=== PATIENT | male | born 1940 | race Caucasian/White ===

== ENCOUNTER 2020-06-27 11:00 | Day surgery (SDC) | payer MEDICARE, BC ==
[2020-06-27] MEDS ORDERED: Iopamidol 200-M 10 ML vial ITHECAL ONE (12:30)
[2020-06-27] MEDS ORDERED: Lidocaine 2% 5 ML SDV INJECT ONE (12:30)
[2020-06-27] MEDS ORDERED: Betamethasone Acetate/Betamethasone Sod Phosphate 30 MG/5 ML MDV EPIDUR ONE (12:30)
[2020-06-27] MEDS ORDERED: Ropivacaine 0.5% 5 MG/ML 30 ML SDV INJECT ONE (12:30)
--- NOTE | 2020-06-27 17:18 | OR ---
SURGEON: Yuliana Brady D.O. DATE OF PROCEDURE: 06/27/2020 PRIMARY SURGEON: Yuliana Brady D.O. ASSISTANTS: OR staff present: 1. Poonam Carrillo RN. 2. Ortiz Foster RT. PREOPERATIVE DIAGNOSES: 1. Chronic left hip pain. 2. Left hip degenerative joint disease. POSTOPERATIVE DIAGNOSES: 1. Chronic left hip pain. 2. Left hip degenerative joint disease. PROCEDURE PERFORMED: 1. Left intraarticular hip injection. 2. Fluoroscopic guidance for needle placement. 3. Local with oral Valium for sedation. SCREENING QUESTIONS: The patient answered "No" to all the following questions: 1. Are you allergic to iodine, Betadine, or latex? 2. Do you have a bleeding disorder? 3. Do you have any joint replacements, heart valve replacements or a pacemaker? 4. Are you allergic to anti-inflammatories? 5. Are you on any blood thinners? 6. Do you have any current local or systemic infections? DESCRIPTION OF PROCEDURE: The patient had the procedure thoroughly explained including all possible risks, benefits and alternatives. Consent was signed in my clinic indicating understanding and willingness to proceed. [facility] and was escorted to the dressing room to disrobe and change into a hospital gown. Preoperative vital signs were taken and stable. The patient was brought to the procedure room and placed in the supine position on the procedure room table. The left hip landmarks were identified for the intra- articular injection and the femoral pulse was palpated and marked. The skin was marked senior care between the femoral pulse and greater trochanter for a skin wheal. The skin was sterilely prepped with ChloraPrep and draped. All personnel in the operating room were dressed in appropriate attire including surgical scrubs, head and shoe covers. This was to ensure sterility while in the treatment room. During the time fluoroscopy was in use, all personnel in the operating room wore lead gonzalez with thyroid collars. Sterile technique was used during the procedure. The fluoroscope was placed for the intra-articular hip injection. There were no signs of infection at the site for needle insertion. The skin was anesthetized with 2% Lidocaine with a 27-gauge 1.5 inch needle. Then using a 22-gauge 3.5 inch spinal needle, I advanced to the capsule of the left hip joint, a pop was felt. Under direct fluoroscopic guidance verifying needle positioning, 0.2 cubic centimeters increments of IsoVue-200 dye was injected and shown to outline the intra-articular space. No intravascular flow pattern was observed under live fluoroscopy. After negative aspiration, a mixture of 0.5% Ropivacaine, 2% Lidocaine, and 12 milligrams of Celestone was slowly injected in small increments after negative aspiration of heme. No paresthesias were noted. The needle was cleared prior to removal from the skin and no adverse reactions were noted. The patient was then brought to the recovery room awake and in good condition by my staff. After a brief stay in the recovery room, the patient was discharged to home. Both oral and written discharge and followup instructions were given to the patient. The patient will follow up in the clinic in two to three weeks postprocedure to evaluate the efficacy. The patient verbalized understanding including understanding those signs and symptoms that would require emergency care and knows how to contact the office if there are any problems or questions in the meantime. PREOPERATIVE PAIN: 5+/10 POSTOPERATIVE PAIN: 1-2/10 FOLLOWUP: In the Pain Clinic in 3 weeks. HOGMADHAV / PETER /[id number] CORNELIA
== END 2020-06-27 13:30 ==
LOC: MW.SDS 11:00
PROVIDERS: ATTEND Anesthesiology
DX: G89.29 Other chronic pain (principal); M16.12 Unilateral primary osteoarthritis, left hip; F17.200 Nicotine dependence, unspecified, uncomplicated; M54.5 Low back pain; M51.37 Other intervertebral disc degeneration, lumbosacral region; M47.816 Spondylosis without myelopathy or radiculopathy, lumbar region; M79.18 Myalgia, other site; Z90.49 Acquired absence of other specified parts of digestive tract

== ENCOUNTER 2021-10-08 08:39 | Observation (INO) | payer MEDICARE, BC ==
[2021-10-08] MEDS ORDERED: Sodium Chloride 0.9% 1,000 ML IV ONE (09:01)
[2021-10-08] MEDS ORDERED: Famotidine 20 MG/2 ML SDV IVPUSH ONE (09:01)
[2021-10-08] MEDS ORDERED: Alum Hydro/Mag Hydro/Simeth XS 15 ML, Lidocaine 2% 5 ML PO ONE ×2 (09:02)
[2021-10-08 09:29] LABS: BLOOD UREA NITROGEN,BUN 20 mg/dL (7.0-18.0); CHLORIDE,CL 103 mmol/L (98-107); ESTIMATED GFR > 60.0 ml/min; GLUCOSE RANDOM 96 mg/dL (74-106); LIPASE 41 U/L (73-393); POTASSIUM,K 3.9 mmol/L (3.5-5.1); SODIUM,NA 140 mmol/L (136-148)
[2021-10-08] MEDS ORDERED: Iopamidol 755 MG/ML 500 ML Multipack Bottle IVPUSH STA (10:42)
[2021-10-08] MEDS ORDERED: Morphine 4 MG/ML VIAL IVPUSH ONE ×2 (10:52→13:02)
[2021-10-08] MEDS ORDERED: Heparin Sodium 5,000 Units/ML Vial IVPUSH ONE (11:52)
[2021-10-08] MEDS ORDERED: Heparin Sodium/0.45% NaCl 500 ML IV SCH ×4 (12:00→13:00)
[2021-10-08] MEDS ORDERED: Heparin Sodium/0.45% NaCl 500 ML ONE (12:21)
[2021-10-08] MEDS ORDERED: Acetaminophen 325 MG Tab PO PRN (14:16)
[2021-10-08] MEDS ORDERED: Morphine 2 MG/ML SYRINGE IVPUSH PRN (14:16)
[2021-10-08] MEDS ORDERED: Sodium Chloride 0.9% 2.5 ML Syringe FLUSH PRN (14:17)
[2021-10-08] MEDS ORDERED: Ondansetron 4 MG/2 ML SDV IVPUSH PRN (14:17)
[2021-10-08] MEDS ORDERED: Sodium Chloride 0.9% 10 ML Syringe FLUSH PRN (14:17)
[2021-10-08] MEDS ORDERED: Albuterol/Ipratropium 3.0-0.5 MG/3 ML Neb Soln NEB PRN (14:17)
[2021-10-08] MEDS ORDERED: Docusate Sodium 100 MG Cap PO PRN (14:17)
[2021-10-08] MEDS ORDERED: Heparin Sodium 5,000 Units/ML Vial IVPUSH PRN (14:22)
[2021-10-08] MEDS ORDERED: oxyCODONE 5 MG Tab PO PRN (16:15)
[2021-10-09 07:42] LABS: BLOOD UREA NITROGEN,BUN 15 mg/dL (7.0-18.0); CARBON DIOXIDE,CO2 25.8 mmol/L (21.0-32.0); CHLORIDE,CL 102 mmol/L (98-107); ESTIMATED GFR > 60.0 ml/min; GLUCOSE RANDOM 79 mg/dL (74-106); SODIUM,NA 136 mmol/L (136-148)
[2021-10-09] MEDS ORDERED: Rivaroxaban 15 MG Tab PO SCH (12:30)
[2021-10-13] MEDS ORDERED: Pneumococcal 23-Valent Conjugate Vaccine 0.5 ML Syringe IM ONE (16:31)
== END 2021-10-09 14:55 | disposition home or self-care (01) ==
LOC: MW.ED 08:39 → MW.MS 13:04
PROVIDERS: ADMIT Student in an Organized Health Care Education/Training Program; ATTEND Student in an Organized Health Care Education/Training Program
DX: I26.99 Other pulmonary embolism without acute cor pulmonale (principal); F17.210 Nicotine dependence, cigarettes, uncomplicated; F17.290 Nicotine dependence, other tobacco product, uncomplicated; Z96.642 Presence of left artificial hip joint; Z20.822 Contact with and (suspected) exposure to COVID-19; Z79.01 Long term (current) use of anticoagulants
CPT/HCPCS: 36415; 71045; 71275; 80048; 80053; 83690; 83735; 83880; 84484; 85025; 85379; 85610; 85730; 93005; 93306; 96365; 96366; 96375; 96376; 99285; A9270; G0378; J1644; J2270; J3490; J7030; Q9967; U0002; 93010; 99217; 99219; G0009

== ENCOUNTER 2023-07-23 21:12 | Observation (INO) | payer MEDICARE, BC ==
[2023-07-23] MEDS ORDERED: Heparin Sodium 100 Units/ML 3 ML Syringe FLUSH STA (21:45)
[2023-07-23] MEDS ORDERED: Morphine 4 MG/ML Syringe IVPUSH ONE ×2 (21:55→23:00)
[2023-07-23 21:57] LABS: BASOPHILS ABSOLUTE AUTO 0.05 K/uL (0.00-0.20); BASOPHILS PERCENT AUTO 0.6 % (0.0-1.0); EOSINOPHILS ABSOLUTE AUTO 0.15 K/uL (0.00-0.45); EOSINOPHILS PERCENT AUTO 1.7 % (0.0-6.0); HEMATOCRIT 42.9 % (42.0-52.0); HEMOGLOBIN 15.2 g/dL (14.0-18.0); IMMATURE GRAN ABSOLUTE AUTO 0.04 K/uL (0.00-0.05); IMMATURE GRAN PERCENT AUTO 0.5 % (0.0-0.4); LYMPHOCYTES PERCENT AUTO 20.7 % (24.0-44.0); MEAN CORPUSCULAR HEMOGLOBIN 32.9 pg (28.0-32.0); MEAN CORPUSCULAR HGB CONC 35.4 g/dL (32.0-36.0); MEAN CORPUSCULAR VOLUME 92.9 fL (83.0-99.0); MEAN PLATELET VOLUME 8.7 fL (9.4-12.4); MONOCYTES ABSOLUTE AUTO 0.69 K/uL (0.00-0.80); MONOCYTES PERCENT AUTO 7.9 % (0.0-8.0); NEUTROPHILS ABSOLUTE AUTO 5.97 K/uL (1.80-7.70); NEUTROPHILS PERCENT AUTO 68.6 % (41.0-71.0); PLATELET COUNT,PLT 230 K/uL (150-400); RED BLOOD CELL COUNT 4.62 M/uL (4.52-5.90)
[2023-07-23 22:23] LABS: A/G RATIO 0.8 (0.9-1.6); ALANINE AMINOTRANSFERASE,ALT 18 IU/L (14-63); ALBUMIN 3.1 g/dL (3.4-5.0); ALKALINE PHOSPHATASE 119 U/L (46-116); ASPARTATE AMNIOTRANSFERASE,AST 15 IU/L (15-37); BILIRUBIN TOTAL 0.2 mg/dL (0.2-1.0); BLOOD UREA NITROGEN,BUN 22 mg/dL (7.0-18.0); CALCIUM 8.5 mg/dL (8.5-10.1); CARBON DIOXIDE,CO2 28.3 mmol/L (21.0-32.0); CHLORIDE,CL 104 mmol/L (98-107); CREATININE 0.9 mg/dL (0.8-1.3); GLUCOSE RANDOM 136 mg/dL (74-106); LACTIC ACID 1.2 mmol/L (0.4-2.0); POTASSIUM,K 4.1 mmol/L (3.5-5.1); PROTEIN TOTAL,TP 7.2 g/dL (6.4-8.2); SODIUM,NA 141 mmol/L (136-148)
[2023-07-23 22:25] LABS: ESTIMATED GFR 86 mL/min (>60)
[2023-07-23] MEDS ORDERED: Iopamidol 755 MG/ML 500 ML Multipack Bottle IVPUSH ONE (22:54)
[2023-07-23 23:05] LABS: APPEARANCE,URINE CLEAR; BILIRUBIN,URINE NEGATIVE (NEGATIVE); COLOR,URINE YELLOW; GLUCOSE,URINE NEGATIVE (NEGATIVE); KETONES,URINE NEGATIVE (NEGATIVE); LEUKOCYTE ESTERASE,URINE NEGATIVE (NEGATIVE); NITRITE,URINE NEGATIVE (NEGATIVE); OCCULT BLOOD,URINE NEGATIVE (NEGATIVE); PROTEIN,URINE NEGATIVE (NEGATIVE); UROBILINOGEN,URINE 0.2 EU/dL (<2.0)
[2023-07-24] MEDS ORDERED: Ondansetron 4 MG/2 ML SDV IVPUSH PRN (08:06)
[2023-07-24] MEDS ORDERED: Bisacodyl 10 MG Supp RECTAL ONE (08:06)
[2023-07-24] MEDS ORDERED: Sodium Chloride 0.9% 10 ML Syringe FLUSH PRN (08:06)
[2023-07-24] MEDS ORDERED: Sodium Chloride 0.9% 2.5 ML Syringe FLUSH PRN (08:06)
[2023-07-24 08:32] LABS: BASOPHILS ABSOLUTE AUTO 0.03 K/uL (0.00-0.20); BASOPHILS PERCENT AUTO 0.4 % (0.0-1.0); EOSINOPHILS ABSOLUTE AUTO 0.12 K/uL (0.00-0.45); EOSINOPHILS PERCENT AUTO 1.5 % (0.0-6.0); HEMATOCRIT 43.8 % (42.0-52.0); HEMOGLOBIN 15.2 g/dL (14.0-18.0); IMMATURE GRAN ABSOLUTE AUTO 0.03 K/uL (0.00-0.05); IMMATURE GRAN PERCENT AUTO 0.4 % (0.0-0.4); LYMPHOCYTES ABSOLUTE AUTO 1.34 K/uL (1.00-4.80); LYMPHOCYTES PERCENT AUTO 16.8 % (24.0-44.0); MEAN CORPUSCULAR HEMOGLOBIN 32.2 pg (28.0-32.0); MEAN CORPUSCULAR HGB CONC 34.7 g/dL (32.0-36.0); MEAN CORPUSCULAR VOLUME 92.8 fL (83.0-99.0); MEAN PLATELET VOLUME 8.5 fL (9.4-12.4); MONOCYTES ABSOLUTE AUTO 0.67 K/uL (0.00-0.80); MONOCYTES PERCENT AUTO 8.4 % (0.0-8.0); NEUTROPHILS ABSOLUTE AUTO 5.81 K/uL (1.80-7.70); NEUTROPHILS PERCENT AUTO 72.5 % (41.0-71.0); PLATELET COUNT,PLT 220 K/uL (150-400); RED BLOOD CELL COUNT 4.72 M/uL (4.52-5.90)
[2023-07-24 08:57] LABS: A/G RATIO 0.7 (0.9-1.6); ALBUMIN 2.9 g/dL (3.4-5.0); BILIRUBIN TOTAL 0.4 mg/dL (0.2-1.0); CALCIUM 8.4 mg/dL (8.5-10.1); CARBON DIOXIDE,CO2 29.9 mmol/L (21.0-32.0); CREATININE 0.9 mg/dL (0.8-1.3); EST CRCL DRUG DOSING (CG) 53.39 mL/min; MAGNESIUM 1.8 mg/dL (1.8-2.4); POTASSIUM,K 4.2 mmol/L (3.5-5.1)
[2023-07-24] MEDS: Sennosides/Docusate Sodium 50-8.6 MG Tab PO SCH (09:53)
[2023-07-24] MEDS ORDERED: Iopamidol 755 MG/ML 500 ML Multipack Bottle IVPUSH STA (12:32)
[2023-07-24] MEDS ORDERED: Acetaminophen 325 MG Tab PO PRN ×2 (12:54→14:55)
[2023-07-24] MEDS ORDERED: Sodium Chloride 0.9% 1,000 ML IV ONE (15:00)
[2023-07-24] MEDS: Apixaban 5 MG Tab PO SCH (15:14)
[2023-07-25] MEDS: Apixaban 5 MG Tab PO SCH (03:27)
[2023-07-25 05:43] LABS: BASOPHILS ABSOLUTE AUTO 0.02 K/uL (0.00-0.20); BASOPHILS PERCENT AUTO 0.3 % (0.0-1.0); EOSINOPHILS ABSOLUTE AUTO 0.12 K/uL (0.00-0.45); HEMOGLOBIN 14.8 g/dL (14.0-18.0); IMMATURE GRAN ABSOLUTE AUTO 0.02 K/uL (0.00-0.05); IMMATURE GRAN PERCENT AUTO 0.3 % (0.0-0.4); LYMPHOCYTES ABSOLUTE AUTO 1.02 K/uL (1.00-4.80); LYMPHOCYTES PERCENT AUTO 16.8 % (24.0-44.0); MEAN CORPUSCULAR HGB CONC 34.4 g/dL (32.0-36.0); MEAN CORPUSCULAR VOLUME 93.1 fL (83.0-99.0); MEAN PLATELET VOLUME 8.6 fL (9.4-12.4); MONOCYTES ABSOLUTE AUTO 0.51 K/uL (0.00-0.80); MONOCYTES PERCENT AUTO 8.4 % (0.0-8.0); NEUTROPHILS ABSOLUTE AUTO 4.39 K/uL (1.80-7.70); NEUTROPHILS PERCENT AUTO 72.2 % (41.0-71.0); PLATELET COUNT,PLT 206 K/uL (150-400); RED BLOOD CELL COUNT 4.62 M/uL (4.52-5.90); WHITE BLOOD CELL COUNT,WBC 6.08 K/uL (3.9-11.3)
[2023-07-25 06:05] LABS: CARBON DIOXIDE,CO2 26.1 mmol/L (21.0-32.0); CREATININE 0.9 mg/dL (0.8-1.3); EST CRCL DRUG DOSING (CG) 53.39 mL/min; POTASSIUM,K 4.1 mmol/L (3.5-5.1)
[2023-07-25] MEDS ORDERED: Bisacodyl 10 MG Supp RECTAL ONE (08:55)
[2023-07-25] MEDS: Sennosides/Docusate Sodium 50-8.6 MG Tab PO SCH (08:55)
== END 2023-07-25 12:15 | disposition home or self-care (01) ==
LOC: MW.ED 21:12 → MW.MS 07-24 03:00
PROVIDERS: ADMIT Internal Medicine; ATTEND Internal Medicine
DX: R10.9 Unspecified abdominal pain (principal); I26.99 Other pulmonary embolism without acute cor pulmonale; R11.2 Nausea with vomiting, unspecified; M94.0 Chondrocostal junction syndrome [Tietze]; K59.00 Constipation, unspecified; F17.200 Nicotine dependence, unspecified, uncomplicated; Z96.649 Presence of unspecified artificial hip joint; Z79.899 Other long term (current) drug therapy
CPT/HCPCS: 36415; 71045; 71275; 74177; 76705; 80048; 80053; 81003; 83605; 83690; 83735; 84484; 85025; 85610; 93005; 96374; 96376; 99285; A9270; J2270; J2405; J7030; Q9967; 96361; 96375; G0378

== ENCOUNTER 2024-05-17 08:08 | Inpatient (IN) | payer MEDICARE, BC ==
[2024-05-17] MEDS ORDERED: Sodium Chloride 0.9% 10 ML Syringe FLUSH PRN ×2 (08:15→12:16)
[2024-05-17] MEDS ORDERED: Sodium Chloride 0.9% 20 ML SDV IV PRN (08:15)
[2024-05-17] MEDS ORDERED: Sodium Chloride 0.9% 2.5 ML Syringe FLUSH PRN ×2 (08:15→12:16)
[2024-05-17 08:30] LABS: BASOPHILS ABSOLUTE AUTO 0.09 K/uL (0.00-0.20); BASOPHILS PERCENT AUTO 1.3 % (0.0-1.0); EOSINOPHILS ABSOLUTE AUTO 0.29 K/uL (0.00-0.45); EOSINOPHILS PERCENT AUTO 4.2 % (0.0-6.0); HEMATOCRIT 47.8 % (42.0-52.0); HEMOGLOBIN 15.8 g/dL (14.0-18.0); IMMATURE GRAN ABSOLUTE AUTO 0.02 K/uL (0.00-0.05); IMMATURE GRAN PERCENT AUTO 0.3 % (0.0-0.4); LYMPHOCYTES ABSOLUTE AUTO 1.76 K/uL (1.00-4.80); LYMPHOCYTES PERCENT AUTO 25.5 % (24.0-44.0); MEAN CORPUSCULAR HEMOGLOBIN 31.1 pg (28.0-32.0); MEAN CORPUSCULAR HGB CONC 33.1 g/dL (32.0-36.0); MEAN CORPUSCULAR VOLUME 94.1 fL (83.0-99.0); MEAN PLATELET VOLUME 9.2 fL (9.4-12.4); MONOCYTES ABSOLUTE AUTO 0.55 K/uL (0.00-0.80); NEUTROPHILS ABSOLUTE AUTO 4.18 K/uL (1.80-7.70); NEUTROPHILS PERCENT AUTO 60.7 % (41.0-71.0); PLATELET COUNT,PLT 238 K/uL (150-400); RED BLOOD CELL COUNT 5.08 M/uL (4.52-5.90); WHITE BLOOD CELL COUNT,WBC 6.89 K/uL (3.9-11.3)
[2024-05-17] MEDS: Iopamidol 755 MG/ML 500 ML Multipack Bottle IVPUSH STA (08:44)
[2024-05-17 08:46] LABS: INR 1.05 (0.86-1.11); PTT,PARTIAL THROMBOPLSTIN TIME 31.6 SEC (23.9-30.7)
[2024-05-17 09:05] LABS: A/G RATIO 0.8 (0.9-1.6); ALBUMIN 3.4 g/dL (3.4-5.0); BILIRUBIN TOTAL 0.4 mg/dL (0.2-1.0); CARBON DIOXIDE,CO2 27.5 mmol/L (21.0-32.0); CREATININE 1.2 mg/dL (0.8-1.3); EST CRCL DRUG DOSING (CG) 42.34 mL/min; POTASSIUM,K 4.4 mmol/L (3.5-5.1); PROTEIN TOTAL,TP 7.6 g/dL (6.4-8.2); TSH ULTRASENSITIVE 7.59 uIU/mL (0.36-3.74)
[2024-05-17] MEDS ORDERED: Acetaminophen 325 MG Tab PO PRN (12:16)
[2024-05-17] MEDS ORDERED: Ondansetron 4 MG/2 ML SDV IVPUSH PRN (12:16)
[2024-05-17] MEDS ORDERED: Docusate Sodium 100 MG Cap PO PRN (12:16)
[2024-05-17] MEDS: Gadobenate Dimeglumine 529 MG/ML 20 ML SDV IVPUSH ONE (13:41)
[2024-05-17 15:22] LABS: TSH ULTRASENSITIVE 6.1 uIU/mL (0.36-3.74)
[2024-05-17 15:46] LABS: T4 FREE 0.73 ng/dL (0.76-1.46)
[2024-05-17] MEDS: atorvaSTATin 40 MG Tab PO SCH (21:02)
[2024-05-17] MEDS: Apixaban 5 MG Tab PO SCH (21:02)
[2024-05-18 06:17] LABS: BASOPHILS ABSOLUTE AUTO 0.08 K/uL (0.00-0.20); BASOPHILS PERCENT AUTO 1.2 % (0.0-1.0); EOSINOPHILS ABSOLUTE AUTO 0.33 K/uL (0.00-0.45); EOSINOPHILS PERCENT AUTO 4.9 % (0.0-6.0); HEMATOCRIT 44.2 % (42.0-52.0); IMMATURE GRAN ABSOLUTE AUTO 0.01 K/uL (0.00-0.05); IMMATURE GRAN PERCENT AUTO 0.1 % (0.0-0.4); LYMPHOCYTES ABSOLUTE AUTO 1.55 K/uL (1.00-4.80); MEAN CORPUSCULAR HEMOGLOBIN 31.4 pg (28.0-32.0); MEAN CORPUSCULAR HGB CONC 33.9 g/dL (32.0-36.0); MEAN CORPUSCULAR VOLUME 92.7 fL (83.0-99.0); MEAN PLATELET VOLUME 9.1 fL (9.4-12.4); MONOCYTES ABSOLUTE AUTO 0.74 K/uL (0.00-0.80); NEUTROPHILS ABSOLUTE AUTO 4.03 K/uL (1.80-7.70); NEUTROPHILS PERCENT AUTO 59.8 % (41.0-71.0); PLATELET COUNT,PLT 232 K/uL (150-400); RED BLOOD CELL COUNT 4.77 M/uL (4.52-5.90); WHITE BLOOD CELL COUNT,WBC 6.74 K/uL (3.9-11.3)
[2024-05-18 06:57] LABS: CALCIUM 8.6 mg/dL (8.5-10.1); CARBON DIOXIDE,CO2 28.2 mmol/L (21.0-32.0); EST CRCL DRUG DOSING (CG) 50.34 mL/min; POTASSIUM,K 4.4 mmol/L (3.5-5.1)
[2024-05-18] MEDS: Gadobenate Dimeglumine 529 MG/ML 20 ML SDV IVPUSH ONE (12:59)
[2024-05-18] MEDS: atorvaSTATin 40 MG Tab PO SCH (21:06)
[2024-05-19 11:24] LABS: BASOPHILS ABSOLUTE AUTO 0.08 K/uL (0.00-0.20); BASOPHILS PERCENT AUTO 1.1 % (0.0-1.0); EOSINOPHILS ABSOLUTE AUTO 0.22 K/uL (0.00-0.45); EOSINOPHILS PERCENT AUTO 3.1 % (0.0-6.0); HEMATOCRIT 44.9 % (42.0-52.0); HEMOGLOBIN 15.3 g/dL (14.0-18.0); IMMATURE GRAN ABSOLUTE AUTO 0.01 K/uL (0.00-0.05); IMMATURE GRAN PERCENT AUTO 0.1 % (0.0-0.4); LYMPHOCYTES ABSOLUTE AUTO 1.75 K/uL (1.00-4.80); LYMPHOCYTES PERCENT AUTO 24.7 % (24.0-44.0); MEAN CORPUSCULAR HEMOGLOBIN 31.6 pg (28.0-32.0); MEAN CORPUSCULAR HGB CONC 34.1 g/dL (32.0-36.0); MEAN CORPUSCULAR VOLUME 92.8 fL (83.0-99.0); MEAN PLATELET VOLUME 8.9 fL (9.4-12.4); MONOCYTES PERCENT AUTO 9.9 % (0.0-8.0); NEUTROPHILS ABSOLUTE AUTO 4.33 K/uL (1.80-7.70); NEUTROPHILS PERCENT AUTO 61.1 % (41.0-71.0); PLATELET COUNT,PLT 240 K/uL (150-400); RED BLOOD CELL COUNT 4.84 M/uL (4.52-5.90); WHITE BLOOD CELL COUNT,WBC 7.09 K/uL (3.9-11.3)
[2024-05-19 11:47] LABS: CALCIUM 9.2 mg/dL (8.5-10.1); CARBON DIOXIDE,CO2 28.8 mmol/L (21.0-32.0); EST CRCL DRUG DOSING (CG) 50.34 mL/min; MAGNESIUM 1.9 mg/dL (1.8-2.4); POTASSIUM,K 4.5 mmol/L (3.5-5.1)
[2024-05-21 05:07] LABS: ANA BY ELISA, IGG W/RFLX IFA None Detected (None Detected); COPPER 110.1 ug/dL (70.0-140.0)
== END 2024-05-19 13:50 | DRG 93 ==
LOC: MW.ED 08:08 → MW.MS 10:14
PROVIDERS: ADMIT Internal Medicine; ATTEND Internal Medicine
DX: I63.9 Cerebral infarction, unspecified (principal); R27.0 Ataxia, unspecified; Z90.49 Acquired absence of other specified parts of digestive tract; R20.2 Paresthesia of skin; K21.9 Gastro-esophageal reflux disease without esophagitis; H91.90 Unspecified hearing loss, unspecified ear; M19.90 Unspecified osteoarthritis, unspecified site; R29.701 NIHSS score 1; Z98.49 Cataract extraction status, unspecified eye; Z90.89 Acquired absence of other organs; Z87.891 Personal history of nicotine dependence; Z79.01 Long term (current) use of anticoagulants; Z86.711 Personal history of pulmonary embolism; Z79.899 Other long term (current) drug therapy; Z96.643 Presence of artificial hip joint, bilateral
CPT/HCPCS: 36415; 70450; 70496; 70498; 71045; 80053; 83036; 84443; 84484; 85025; 85610; 85730; 93005; 99285; Q9967; 70553; 70553-26; 72156; 72156-26; 72157; 72157-26; 72158; 72158-26; 80048; 80061; 82525; 82607; 83519; 83520; 83735; 84439; 84446; 86038; 86041; 86256; 92610-GN; 93010; 93306; 97110-GP; 97116-GP; 97162-GP; A9270-GY; A9577